=== PATIENT | male | born 1980 | race Caucasian/White ===

== ENCOUNTER 2022-12-02 09:44 | Outpatient (CLI) | payer OTHER, SELFPAY | END 2022-12-02 09:45 | disposition home or self-care (01) | PROVIDERS: PCP Family Medicine; Visit Provider Family Medicine | DX: Z00.00 Encounter for general adult medical examination without abnormal findings (principal); R73.09 Other abnormal glucose; E66.01 Morbid (severe) obesity due to excess calories; I10 Essential (primary) hypertension | CPT/HCPCS: 80048; 80061; 83036; 84443; 85025 ==

== ENCOUNTER 2023-06-03 07:00 | Outpatient (CLI) | payer OTHER, SELFPAY ==
--- OUTSIDE RECORDS SUMMARY | 2023-06-05 07:00 | XMS_ITS | Clinical Summary ---
Author Name Unknown Organization [facility] Address [place], [place] [address] Care Team Providers Care Neon Sign Worker Name Role Phone Jonathan Ortega MD Primary Care Provider +1- [phone] Allergies No known active allergies Medications Medication Sig Dispensed Refills Start Date End Date Status CPAPIndications:CHRIS (obstructive sleep apnea) autoCPAP, heated humidifier, mask, headgear, filters and tubing. Pressure: 4-15cm/H2O Length of Need: 99 1 Device 0 10/03/2015 Active clindamycin phosphate 1% topical 1 % external solutionIndications:H idradenitis suppurativa Apply topically to affected area(s) 2 times daily. 60 mL 2 07/31/2017 Active Omeprazole 20 mg tablet Take 1 tablet by mouth once daily before a meal. 0 12/29/2017 Active loratadine (CLARITIN) 10 mg tablet Take 1 tablet by mouth once daily. 0 12/29/2017 Active Active Problems Problem Noted Date Diagnosed Date Morbid obesity with BMI of 50.0-59.9, adult 09/18 Environmental allergies 10/03/2015 CHRIS 09/05/2015 AHI-30 10/03/2015 Immunizations Name Administration Dates Next Due Influenza, IIV4 03/24/2016,05/29/2015 Tdap 05/21/2012 Family History Medical History Relation Name Comments Cancer-prostate Father 72 Hypertension Father 72 Obesity Father 72 Hyperlipidemia Maternal Grandfather 91 heart failure Hypertension Maternal Grandfather 91 Hyperlipidemia Maternal Grandmother 95 blood cancer Obesity Mother 68 Diabetes Paternal Grandfather 70 Hyperlipidemia Paternal Grandfather 70 Hypertension Paternal Grandfather 70 heart f ailure Obesity Paternal Grandfather 70 Hyperlipidemia Paternal Grandmother 79 Hypertension Paternal Grandmother 79 cancer Relation Name Status Comments Father 72 Alive Maternal Grandfather 91 Maternal Grandmother 95 Mother 68 Alive Paternal Grandfather 70 Paternal Grandmother 79 Social History Tobacco Use Types Packs/Day Years Used Date Smoking Tobacco: Never Cigars Smokeless Tobacco: Never Tobacco Cessation:Counseling Given: Yes Alcohol Use Standard Drinks/Week Comments Yes 0 (1 standard drink = 0.6 oz pur e alcohol) rarely PHQ-2 Answer Date Recorded PHQ-2 Score 2 06/20/2018 Sex and Gender Information Value Date Recorded Sex Assigned at Not on file Gender Identity Not on file Sexual Orientation Not on file Obstetrics History Last Filed Vital Signs Vital Sign Reading Time Taken Comments Blood Pressure 130/89 07/31/2017 11:05 AM CDT Pulse 89 07/31/2017 11:05 AM CDT Temperature 36.8 ??C (98.3 ??F) 07/31/2017 1 1:05 AM CDT Respiratory Rate - - Oxygen Saturation 96% 07/31/2017 11: 05 AM CDT Inhaled Oxygen Concentration - - Weight 179.6 kg (395 lb 14.4 oz) 2017 11:05 AM CDT Height 183 cm (6' 0.05) 07/31/2017 11: 05 AM CDT Body Mass Index 53.62 07/31/2017 11:05 AM CDT Plan of Treatment Health Maintenance Due Date Last Done Comments COVID-19 vaccine series (#1) 1979 HIV for age 15-65 1994 Hepatitis C screening for ag e 18-79 1997 BMI (ht and wt on same day) for age 18+ 07/31/2018 07/31/2017, 07/11/2016, 08/27/2015 Depression screening for age 12+ 07/31/2018 07/31/2017, 08/27/2015 Lipids for age 35-44 07/11/2021 07/11/2016, 05/21/2012 Tetanus booster 05/21/2022 05/21/2012 Influenza for age 9-49 12/19/2022 6, 05/29/2015 Tdap Completed 05/21/2012 Pneumococcal series for age 6-64 Aged Out No longer eligible b ased on patient's age to complete this topic Care Teams Neon Sign Worker Relationship Specialty Start Date End Date Jonathan Ortega MD [address] [place] [address] PCP - General Family Practice 07/31/17
== END 2023-06-03 07:01 | disposition home or self-care (01) ==
LOC: NFLDREF 06-05 06:58
PROVIDERS: PCP Family Medicine; Referring Provider Family Medicine; Visit Provider Family Medicine
DX: Z31.41 Encounter for fertility testing (principal)
CPT/HCPCS: 89322

== ENCOUNTER 2023-09-01 15:00 | Outpatient (RCR) | payer OTHER, SELFPAY | END 2023-09-01 16:04 | disposition home or self-care (01) | PROVIDERS: PCP Family Medicine; Visit Provider Nurse Practitioner Family | DX: M65.4 Radial styloid tenosynovitis [de Quervain] (principal); M79.644 Pain in right finger(s); M65.311 Trigger thumb, right thumb; Z51.89 Encounter for other specified aftercare | CPT/HCPCS: 97033; 97035; 97110; 97140; 97165; X5282 ==

== ENCOUNTER 2023-12-04 09:07 | Outpatient (CLI) | payer OTHER, SELFPAY ==
--- OUTSIDE RECORDS SUMMARY | 2023-12-04 09:11 | XMS_ITS | Clinical Summary ---
Author Organization [facility] Address [place], [place] [address] Care Team Providers Care Chemical Blender Name Role Phone Jonathan Ortega MD Primary Care Provider +1- [phone] Allergies No known active allergies Medications Medication [...] Health Maintenance Due Date Last Done Comments HIV for age 15-65 1994 Hepatitis C screening for ag e 18-79 1997 BMI (ht and wt on same day) for age 18+ 07/31/2018 07/31/2017, 07/11/2016, 08/27/2015 Depression screening for age 12+ 07/31/2018 07/31/2017, 08/27/2015 Lipids for age 35-44 07/11/2021 07/11/2016, 05/21/2012 Tetanus booster 05/21/2022 05/21/2012 COVID-19 vaccine series ( season) 2022 Influenza for age 9-49 12/20/2023 6, 05/29/2015 Tdap Completed 05/21/2012 Pneumococcal series for age 6-64 Aged Out No longer eligible b ased on patient's age to complete this topic Procedures Procedure Name Priority Date/Time Associated Diagnosis Comments LIPID PANEL Routine 07/11/2016 10:03 AM CDT Lipid screening from Last 3 Months or Most Recently Relevant to Health Maintenance Results * (ABNORMAL) LIPID PANEL (07/11/2016 10:03 AM CDT) CHOLESTEROL,TOTAL 151 100 - 199 mg/dL 07/11/2016 10:36 AM CDT [facility] TRIGLYCERIDES 125 <150 mg/dL 07/11/2016 10:36 AM CDT [facility] HDL CHOLESTEROL 33(L) >40 mg/dL 7 10:36 AM CDT [facility] NON-HDL CHOLESTEROL 118 <145 mg/dl 07/11/2016 10:36 AM CDT [facility] CHOL/HDL RATIO 4.58(H) <4.50 07/11/2016 10:36 AM CDT [facility] LDL CHOLESTEROL 93 <=130 mg/dL 07/11/2016 10:36 AM CDT [facility] PATIENT STATUS FASTING 07/11/2016 10:36 AM CDT [facility] Blood BLOOD SPECIMEN / Unknown Venipuncture / Unknown 07/11/2016 10:03 AM CDT 07/11/2016 10:03 AM CDT Jonathan Ortega MD CHEMISTRY [facility] [address] [place] [address], from Last 3 Months or Most Recently Relevant to Health Maintenance Care Teams Chemical Blender Relationship Specialty Start Date End Date Jonathan Ortega MD [address] [place] [address] PCP - General Family Practice 07/31/17
[2023-12-04 14:50] LABS: Chlamydia DNA Amplified* NOT DETECTED (No Detected); GC DNA Amplified* NOT DETECTED (No Detected)
== END 2023-12-04 09:08 | disposition home or self-care (01) ==
PROVIDERS: PCP Family Medicine; Visit Provider Family Medicine
DX: I10 Essential (primary) hypertension (principal); Z11.3 Encounter for screening for infections with a predominantly sexual mode of transmission; Z13.220 Encounter for screening for lipoid disorders
CPT/HCPCS: 80048; 80061; 86592; 86703; 87491; 87591

== ENCOUNTER 2023-12-30 09:23 | Outpatient (CLI) | payer OTHER, SELFPAY ==
--- OUTSIDE RECORDS SUMMARY | 2023-12-30 09:31 | XMS_ITS | Clinical Summary ---
Author Organization [facility] Address [place], [place] [address] Care Team Providers Care Manager Business Name Role Phone Jonathan Ortega MD Primary Care Provider +1- [phone] Allergies No known active allergies Medications Medication [...] 05/21/2022 05/21/2012 COVID-19 vaccine series ( season) 2023 Influenza for age 9-49 12/20/2023 6, 05/29/2015 [...] - 199 mg/dL 07/11/2016 10:36 AM CDT [facility] TRIGLYCERIDES 125 <150 mg/dL 07/11/2016 10:36 AM CDT [facility] HDL CHOLESTEROL 33(L) >40 mg/dL 7 10:36 AM CDT [facility] NON-HDL CHOLESTEROL 118 <145 mg/dl 07/11/2016 10:36 AM CDT [facility] CHOL/HDL RATIO 4.58(H) <4.50 07/11/2016 10:36 AM CDT [facility] LDL CHOLESTEROL 93 <=130 mg/dL 07/11/2016 10:36 AM CDT [facility] PATIENT STATUS FASTING 07/11/2016 10:36 AM CDT [facility] Blood BLOOD SPECIMEN / Unknown Venipuncture / Unknown 07/11/2016 10:03 AM CDT 07/11/2016 10:03 AM CDT Jonathan Ortega MD CHEMISTRY [facility] [address] [place] [address], from Last 3 Months or Most Recently Relevant to Health Maintenance Care Teams Manager Business Relationship Specialty Start Date End Date Jonathan Ortega MD [address] [place] [address] PCP - General Family Practice 07/31/17
== END 2023-12-30 09:24 | disposition home or self-care (01) ==
LOC: FBOREF 09:24
PROVIDERS: PCP Family Medicine; Visit Provider Family Medicine
DX: N52.9 Male erectile dysfunction, unspecified (principal)
CPT/HCPCS: 84403

== ENCOUNTER 2024-09-15 10:24 | Outpatient (CLI) | payer BC, SELFPAY | END 2024-09-15 10:25 | disposition home or self-care (01) | PROVIDERS: PCP Family Medicine; Visit Provider Family Medicine | DX: I10 Essential (primary) hypertension (principal); E11.65 Type 2 diabetes mellitus with hyperglycemia; Z79.84 Long term (current) use of oral hypoglycemic drugs | CPT/HCPCS: 80048; 80061 ==